=== PATIENT | female | born 1985 | race Hispanic/Latino ===

== ENCOUNTER 2025-01-31 11:41 | Outpatient (CLI) | payer BC, SELFPAY ==
--- NOTE | ~2025-01-31 | XR_ITS ---
EXAMINATION: XR wrist RT min 3V, 01/31/2025 11:55 ASSISTANT MEDIA PLANNER HISTORY: M25.531 - Pain in right wrist after injury 2 months ago COMPARISON: No comparisons available. Findings: No acute fracture or malalignment. No significant degenerative changes. Soft tissues unremarkable. Impression: No acute fracture or malalignment. Reviewed, dictated and finalized at location P. STANT MEDIA PLANNER Impression: No acute fracture or malalignment.
--- OUTSIDE RECORDS SUMMARY | 2025-01-31 13:14 | XMS_ITS | Data Portability ---
Author Organization [facility] , [facility] Address [address] [place] [address] Assessment No assessment recorded. Plan of Treatment Reminders Order Date Submit Date Provider Last Modified By Organization Details Last Modified Time Details Appointments None recorded. Lab test, urine 2022 023 [email or web address] 1 [facility], [address] [place], [address], 3 21:08:51 beta-HCG, quantitativ e, serum or plasma 2022 023 [facility], [address] [place] [address], [address], 3 10:50:34 Referral None recorded. Procedures None recorded. Surgeries None recorded. Imaging US, transvagina l 2022 023 JOANN [facility], [address] [place], [address], 3 23:37:00 MAMMO, screening, digital, bilateral [email or web address] [address] [place], [address], 3 11:17:22 US, obstetric, transvagina l 2022 023 JOANN Not available 3 23:38:59 Medication Orders labetalol 200 mg tablet 2022 023 [email or web address] [id number], [address], [place], [address], 10:38:46 Patient TargetsNo targets recorded. Patient InstructionsNo instructions recorded. Reason for Referral None Reported. Results Created Date Observation Date Name Description Value Unit Range Abnormal Flag Note LastModifiedBy Organization Detail LastModifiedTime 09/14/1909/13/2022 CBC (INCL UDES DIFF/ PLT) white blood cell count 9.2 thous and/u L 3.8-10 .8 normal Not Available [place] [address], [address], 09/13/2022 14:53:16 09/14/1909/13/2022 CBC (INCL UDES DIFF/ PLT) red blood cell count 4.44 toña on/uL 3.80-5 .10 normal Not Available [address], [address], 09/13/2022 14:53:16 09/14/1909/13/2022 CBC (INCL UDES DIFF/ PLT) hemoglobin 13.1 g/dL 11.7-1 5.5 normal Not Available [address], [address], 09/13/2022 14:53:16 09/14/1909/13/2022 CBC (INCL UDES DIFF/ PLT) hematocrit 40.9 % 35.0-4 5.0 normal Not Available [place] [address], [address], 09/13/2022 14:53:16 09/14/1909/13/2022 CBC (INCL UDES DIFF/ PLT) MCV 92.1 fL 80.0-1 00.0 normal Not Available [place] [address], [address], 09/13/2022 14:53:16 09/14/19 23 09/13/2022 CBC (INCL UDES DIFF/ PLT) MCH 29.5 pg 27.0-3 3.0 normal Not Available [address], [address], 09/13/2022 14:53:16 09/14/19 23 09/13/2022 CBC (INCL UDES DIFF/ PLT) MCHC 32.0 g/dL 32.0-3 6.0 normal Not Available [address], [address], 09/13/2022 14:53:16 09/14/1909/13/2022 CBC (INCL UDES DIFF/ PLT) RDW 14.3 % 11.0-1 5.0 normal Not Available [address], [address], 09/13/2022 14:53:16 09/14/1909/13/2022 CBC (INCL UDES DIFF/ PLT) platelet count 338 thous and/u L 140-40 0 normal Not Available [address], [address], 09/13/2022 14:53:16 09/14/19 23 09/13/2022 CBC (INCL UDES DIFF/ PLT) MPV 9.8 fL 7.5-12 .5 normal Not Available [address], [address], 09/13/2022 14:53:16 09/14/1909/13/2022 CBC (INCL UDES DIFF/ PLT) absolute neutrophils 5824 cells /uL 1500-7 800 normal Not Available [address], [address], 09/13/2022 14:53:16 09/14/19 23 09/13/2022 CBC (INCL UDES DIFF/ PLT) absolute lymphocytes 2668 cells /uL 850-39 00 normal Not Available [facility] [address], [place], [address], 09/13/2022 14:53:16 09/14/19 23 09/13/2022 CBC (INCL UDES DIFF/ PLT) absolute monocytes 515 cells /uL 200-95 0 normal Not Available [address], [address], 09/13/2022 14:53:16 09/14/19 23 09/13/2022 CBC (INCL UDES DIFF/ PLT) absolute eosinophils 120 cells /uL 15-500 normal Not Available [address], [address], 09/13/2022 14:53:16 09/14/19 23 09/13/2022 CBC (INCL UDES DIFF/ PLT) absolute basophils 74 cells /uL 0-200 normal Not Available [address], [address], 09/13/2022 14:53:16 09/14/19 23 09/13/2022 CBC (INCL UDES DIFF/ PLT) neutrophils 63.3 % normal Not Available [address], [address], 09/13/2022 14:53:16 09/14/19 23 09/13/2022 CBC (INCL UDES DIFF/ PLT) lymphocytes 29.0 % normal Not Available [facility] [address], [address], 09/13/2022 14:53:16 09/14/19 23 09/13/2022 CBC (INCL UDES DIFF/ PLT) monocytes 5.6 % normal Not Available [address], [address], 09/13/2022 14:53:16 09/14/19 23 09/13/2022 CBC (INCL UDES DIFF/ PLT) eosinophils 1.3 % normal Not Available [facility] [address] [place], [address], 09/13/2022 14:53:16 09/14/19 23 09/13/2022 CBC (INCL UDES DIFF/ PLT) basophils 0.8 % normal Not Available [facility] [address] [place], [address], 09/13/2022 14:53:16 09/14/19 23 09/13/2022 ABO GROUP AND RH TYPE ABO group O Not Available [facility] [address] [place], [address], 09/13/2022 14:53:16 09/14/1909/13/2022 ABO GROUP AND RH TYPE Rh type RH(D) POSITI VE For addit ional infor ruthy lockwood e refer to http: //maria parham healthken diana.Que stDia gnost ics.c om/fa q/FAQ 111 (This link is being provi ded for infor monty nal/ educa anali l purpo ses only. ) NO COLLE CTION DATE RECEI LEE. WE HAVE USED THE DATE THE SPECI MEN WAS RECEI LEE BY THIS LABOR ATORY THE COLLE CTION DATE. IF THIS IS INCOR RECT, PLEAS E CONTA CT CLIEN T SERVI MUNA. PHONE NUMBE R: [phone] Not Available [address] [address] [place], [address], 09/13/2022 14:53:16 09/12/1909/12/2022 HCG, TOTAL , QUANT HCG, total, [place] [address] mIU/m L <5 high Refer ence Range s are for femal es aged 18 years - Adult Nonpr egnan t or preme nopau tobias <5 Postm enopa usal <10 Value s from diffe rent assay metho ds may vary. The use of this assay to monit or or to diagn ose patie nts with cance r or any other condi tion unrel ated to pregn rita has not been valid ated by the manuf actur er of this assay . Not Available [address], [address], 09/12/2022 11:45:23 09/12/19 23 09/12/2022 CBC (INCL UDES DIFF/ PLT) WBC 9.3 thous and/u L 4.0 - 9.8 normal Not Available [address], [address], 09/12/2022 11:45:41 09/12/19 23 09/12/2022 CBC (INCL UDES DIFF/ PLT) RBC 4.5 toña on/uL 3.9 - 4.9 normal Not Available [address], [address], 09/12/2022 11:45:41 09/12/19 23 09/12/2022 CBC (INCL UDES DIFF/ PLT) hemoglobin 13.0 g/dL 11.8 - 14.8 normal Not Available [address], [address], 09/12/2022 11:45:41 09/12/1909/12/2022 CBC (INCL UDES DIFF/ PLT) hematocrit 39.3 % 35.5 - 44.0 normal Not Available [address], [address], 09/12/2022 11:45:41 09/12/1909/12/2022 CBC (INCL UDES DIFF/ PLT) MCV 88.3 fL 82.0 - 99.0 normal Not Available [address], [address], 09/12/2022 11:45:41 09/12/1909/12/2022 CBC (INCL UDES DIFF/ PLT) MCH 29.2 pg 27.2 - 32.6 normal Not Available [address], [address], 09/12/2022 11:45:41 07/12/09/12/2022 CBC (INCL UDES DIFF/ PLT) MCHC 33.1 g/dL 31.5 - 35.5 normal Not Available [address], [address], 09/12/2022 11:45:41 09/12/1909/12/2022 CBC (INCL UDES DIFF/ PLT) RDW-CV 14.2 % 11.5 - 14.5 normal Not Available [address], [address], 09/12/2022 11:45:41 09/12/19 23 09/12/2022 CBC (INCL UDES DIFF/ PLT) platelet 352 thous and/u L 140 - 350 high Not Available [address], [address], 09/12/2022 11:45:41 09/12/1909/12/2022 CBC (INCL UDES DIFF/ PLT) MPV 10.4 fL 9.3 - 12.4 normal Not Available [address], [address], 09/12/2022 11:45:41 09/12/19 23 09/12/2022 CBC (INCL UDES DIFF/ PLT) absolute neutrophil 5.91 thous and/u L 1.90 - 7.00 normal Not Available [address], [address], 09/12/2022 11:45:41 09/12/1909/12/2022 CBC (INCL UDES DIFF/ PLT) absolute lymphocyte 2.65 thous and/u L 0.70 - 4.50 normal Not Available [address], [address], 09/12/2022 11:45:41 09/12/19 23 09/12/2022 CBC (INCL UDES DIFF/ PLT) absolute monocyte 0.48 thous and/u L 0.10 - 1.30 normal Not Available [address], [address], 09/12/2022 11:45:41 09/12/19 23 09/12/2022 CBC (INCL UDES DIFF/ PLT) absolute eosinophil 0.14 thous and/u L <0.70 normal Not Available [address], [address], 09/12/2022 11:45:41 09/12/19 23 09/12/2022 CBC (INCL UDES DIFF/ PLT) absolute basophil 0.06 thous and/u L <0.20 normal Not Available [address], [address], 09/12/2022 11:45:41 09/12/19 23 09/12/2022 CBC (INCL UDES DIFF/ PLT) absolute immature granulocyte 0.04 thous and/u L <0.03 high Not Available [address], [address], 09/12/2022 11:45:41 09/12/1909/11/2022 pregn rita test, urine HCG positi ve Not Available [facility] [address] [place], [address], 09/11/2022 10:48:33 09/14/1909/14/2022 HCG, TOTAL , QUANT HCG, total, quant 01684 mIU/m L <5 high Refer ence Range s are for femal es aged 18 years - Adult Nonpr egnan t or preme nopau tobisa <5 Postm enopa usal <10 Value s from diffe rent assay metho ds may vary. The use of this assay to monit or or to diagn ose patie nts with cance r or any other condi tion unrel ated to pregn rita has not been valid ated by the manuf actur er of this assay . Not Available [address], [address], 09/14/2022 10:24:23 09/27/1909/27/2022 HCG, TOTAL , QUANT HCG, total, quant 752 mIU/m L <5 high Refer ence Range s are for femal es aged 18 years - Adult Nonpr egnan t or preme nopau tobias <5 Postm enopa usal <10 Value s from diffe rent assay metho ds may vary. The use of this assay to monit or or to diagn ose patie nts with cance r or any other condi tion unrel ated to pregn rita has not been valid ated by the manuf actur er of this assay . Not Available [facility] [address] [place], [address], 09/27/2022 10:50:34 09/27/1909/26/2022 pregn rita test, urine HCG positi ve Not Available [facility] [address] [place], [address], 09/26/2022 16:15:12 11/15/19 23 11/15/2022 HCG, TOTAL , QN HCG, total, qn <5 mIU/m L normal Refer ence Range Nonpr egnan t or preme nopau tobias <5 Postm enopa usal <10 Value s from diffe rent assay metho ds may vary. The use of this assay to monit or or to diagn ose patie nts with cance r or any condi tion unrel ated to pregn rita has not been clear ed or appro lee by the FDA or the [facility] act[facility] er of the assay . Not Available [facility] [address] [place], [address], 11/15/2022 07:19:38 09/15/19 23 09/11/2022 US, trans vagin al No observ ation record ed. [email or web address] Kati [address] [place] [address] [address], [place], [address], 09/14/2022 19:22:31 09/23/19 23 09/18/2022 US, obste tric, trans vagin al No observ ation record ed. [email or web address] Kati [address], [place], [address], 09/23/2022 10:08:00 10/03/19 23 10/02/2022 US, trans perriin al No observ ation record ed. douglas Parikh [address], [place], [address], 10/03/2022 12:14:14 Result Notes None recorded. Problems Name Problem SNOMED Code Status Onset Date Resolution Date Notes Provider Name and Address Organization Details Recorded Time Breast lump 76981176 Completed 201704/30/2017 Breast mass; Progress : Stable Added By: Pretty Mcmillan Add to Current Problems : YES ProblemS tatus: Current Unspecif ied lump in breast; Progress : Stable Added By: Gabo Tate Add to Current Problems : NO ProblemS tatus: Resolve Breast mass; Location : None Progress : Stable Added By: Gabo Tate Add to Current Problems : YES ProblemS tatus: Resolve Not Available [facility] 20:02:50 Problem Notes None recorded. Procedures Surgical History Date Name Laterality Status Provider Name and Address Organization Details Recorded Time 10/12/19 hysteroscopy completed Braulio Rosenthal MD [address] [place] [address], [phone], [facility] [employer] [facility] 10/23/2022 11:32:50 10/10/19 23 Most Recent Mammogram completed Braulio Rosenthal MD [address] [place] [address], [phone], [facility] IV 10/23/2022 11:37:14 07/18/19 22 Date of Last Pap Smear completed Sherley Roberson [place] - [facility] 10/20/2022 18:15:47 03/23/19 22 Nexplanon Removal completed Sendy Garcias CNM [address] [place] [address], [phone], [employer] - [facility] IV 04/01/2021 17:37:54 laparoscopy completed Lou Hay [employer] IV 03/23/2021 11:48:40 lumpectomy of right breast completed [facility] IV 03/23/2021 11:48:59 biopsy of breast completed [facility] 03/23/2021 11:49:21 Imaging Results None recorded. Procedure Notes None recorded. Medical Equipment None Reported. Allergies Allergen ID Allergen Name Allergen Category Reaction Reaction Severity Criticality Documentation Date Start Date Code Code System Note Provider Name and Address Organization Details Recorded Time 533650 peanut oil food,medi cation Not available Not available Not available 12/22/20202017 21255 RxNorm Sever ity: Moder ate; Not Available [facility] 1 01:19:26 584105 peanut allergeni c extract food,medi cation Not available Not available Not available 07/17/2021 81877 8 RxNorm Salma Josiah [facility], [place] [employer] 2 12:10:36 Medications Name Sig Start Date Stop Date Status Note LastModified by Organization Details LastModified Time cyclobenz aprine 10 mg tablet TAKE 1 TABLET BY MOUTH EVERY 8 HOURS NEEDED FOR 5 DAYS 07/17 completed Not Available Not Available Not Available doxycycli ne hyclate 100 mg capsule 10/23 completed Not Available Not Available Not Available labetalol 200 mg tablet Take 1 tablet twice a day by oral route as directed . 10/23 completed Not Available Not Available Not Available ibuprofen 800 mg tablet TAKE 1 TABLET BY MOUTH EVERY 6 HOURS NEEDED FOR 5 DAYS 10/23 completed Not Available Not Available Not Available benzonata te 200 mg capsule TAKE 1 CAPSULE BY MOUTH THREE TIMES A DAY 01/08 completed Not Available Not Available Not Available doxycycli ne hyclate 50 mg capsule TAKE 1 CAPSULE BY MOUTH EVERY DAY 01/08 completed Not Available Not Available Not Available oxycodone -acetamin ophen 5 mg-325 mg tablet TAKE 1 TABLET BY MOUTH EVERY 4 HOURS NEEDED FOR PAIN FOR UP TO 7 DAYS 10/23 completed Not Available Not Available Not Available meclizine 25 mg tablet TAKE 1 TABLET 3 TIMES A DAY BY ORAL ROUTE NEEDED. 10/23 completed Not Available Not Available Not Available misoprost ol 200 mcg tablet INSERT 4 TABS IN THE VAGINA FOR 15 MINUTES IN SUPINE POSITION TONIGHT, REPEAT TOMORROW 09/26 completed Not Available Not Available Not Available diclofena c sodium 50 mg tablet,de layed release TAKE 1 TABLET BY MOUTH EVERY 8 HOURS NEEDED FOR PAIN OR STIFFNES S 09/11 completed Not Available Not Available Not Available levofloxa kiara 500 mg tablet TAKE 1 TABLET BY MOUTH EVERY DAY FOR 10 DAYS 09/11 completed Not Available Not Available Not Available labetalol 100 mg tablet TAKE 1 TABLET BY MOUTH TWICE A DAY 10/02 completed Not Available Not Available Not Available drospiren one 3 mg-ethiny l estradiol 0.03 mg tablet TAKE 1 TABLET BY MOUTH EVERY DAY 2023 active Not Available Not Available Not Avai lable doxycycli ne hyclate 100 mg tablet TAKE 1 TABLET BY MOUTH TWICE A DAY FOR 7 DAYS 09/26 completed Not Available Not Available Not Available naproxen 500 mg tablet TAKE 1 TABLET BY MOUTH TWICE A DAY NEEDED 01/08 completed Not Available Not Available Not Available NuvaRing 0.12 mg-0.015 mg/24 hr vaginal Insert 1 vaginal ring in vagina for 21 days then remove the ring for 1 week. 03/10 completed NuvaRing 0.015mg/ 0.12mg Vaginal Ring RxNorm: [id number] Allow Substitu tion: True Refill Denied: No Edited by: Regine Solorio ) on 03/10/19 Stopped by: Regine Solorio ) on 03/10/19 Not Available Not Available Not Available cyclobenz aprine 5 mg tablet TAKE 1 TABLET 3 TIMES A DAY BY ORAL ROUTE. 01/08 completed Not Available Not Available Not Available metronida zole 1 % topical gel 03/23 completed Not Available Not Available Not Available Lo Loestrin Fe 1 mg-10 mcg (24)/10 mcg (2) tablet TAKE 1 TABLET BY MOUTH EVERY DAY 09/11 completed Not Available Not Available Not Available Nexplanon 68 mg subdermal implant 07/17 completed etonoges treL 68 mg Subderma l Implant RxNorm: [id number] Refill Denied: No Refill DateOccu rred: 04/27/19 Edited by: Regine Solorio ) on 02/25/20 21 Stopped by: curtis (Regine Rao ) on Not Available Not Available Not Available 28 mg iron-800 mcg tablet TAKE 1 TABLET BY MOUTH EVERY DAY DIRECTED 01/08 completed Not Available Not Available Not Available Soolantra 1 % topical cream 03/23 completed Not Available Not Available Not Available ID NOW COVID-19 Test Kit TEST DIRECTED 07/17 completed Not Available Not Available Not Available Vitals Date Recorded Body height Body mass index (BMI) Body weight Body temperature Systolic And Diastolic Provider Name and Address Organization Details Last Updated DateTime 09/18/2022 157.48 cm 32 kg/m2 68483.9 5 g 97.8 [degF] 132/90 mm[Hg] [facility] 3 16:36:18 Date Recorded Body height Body mass index (BMI) Body weight Systolic And Diastolic Provider Name and Address Organization Details Last Updated DateTime 09/26/2022 157.48 cm 31.8 kg/m2 28101.64 g 142/90 mm[Hg] Neela Julian [facility] IV 09/26/2022 16:15:44 Date Recorded Body height Systolic And Diastolic Provider Name and Address Organization Details Last Updated DateTime 10/02/2022 157.48 cm 136/84 mm[Hg] [facility] 10/02/2022 12:15:29 Date Recorded Body height Body mass index (BMI) Body weight Body temperature Systolic And Diastolic Provider Name and Address Organization Details Last Updated DateTime 10/09/2022 157.48 cm 30.9 kg/m2 05137.1 1 g 97.3 [degF] 120/80 mm[Hg] Madeleine Castillo [facility] IV 3 11:35:03 Date Recorded Body height Body mass index (BMI) Body weight Body temperature Systolic And Diastolic Provider Name and Address Organization Details Last Updated DateTime 10/23/2022 157.48 cm 31.5 kg/m2 91820.3 2 g 97.6 [degF] 132/86 mm[Hg] Felisa Lunsford [facility] IV 3 10:38:17 Social History Question Answer Notes LastModified by Organizat ion Details LastModified Time Tobacco Smoking Status Never Smoker Salma Rahman null, [facility] 07/17/2021 12:10:53 If You Are , What Was Your Level Of Alcohol Consumption Prior To ? Occasional Information not available 09/11/2022 Are You Blind Or Do You Have Difficulty Seeing? No Information not available 09/11/2022 Are You Deaf Or Do You Have Serious Difficulty Hearing? No Information not available 09/11/2022 What Type Of Diet Are You Following? REGULAR Information not available 07/17/2021 How Many Children Do You Have? 4 Information not available 03/23/2021 What Is Your Relationship Status? Information not available 03/23/2021 Are You Sexually Active? Yes Information not available 03/23/2021 Sex: Unknown Functional Status Question Answer Note LastModified by Organizat ion Details LastModified Time How many times per week do you consume alcohol? 1-2 times per week Information not available 09/11/2022 Do you use any illicit or recreational drugs? No Information not available 09/11/2022 What is your level of alcohol consumption? Occasional Information not available 07/17/2021 Do you or have you ever used e-cigarettes or vape? Never used electronic cigarettes Information not available 07/17/2021 What is your exercise level? Occasional Information not available 07/17/2021 Mental Status None recorded. Family History Relationship Description Onset Age of this Age Resolved Age Notes LastModified by Organization Details LastModified Time Father No current problems or disability Not available 12:10:39 Mother No current problems or disability [email or web address] Not available 11:46:52 Mother Hypertensive disorder Not available 07/01 12:10:39 Mother Hypercholest erolemia Not available 07/01 12:10:39 Maternal Grandfather No current problems or disability Not available 12:10:39 Medical History Condition Response Herpes (HSV) Y Gynecological History Statement/Question Response Flow Moderate Date of last HPV 07/17/2021 Frequency of Cycle (Q days) 28 Date of LMP 07/17/2022 Date of Last Pap Smear 07/17/2021 Duration of Flow (days) 5 Most Recent Mammogram 10/09/2022 Current Control Method None Age at Menarche 11 Obstetrics History GPAL:G 4 P 4 0 0 4 Type Value Full Term 4 Living 4 Total 4 Past Encounters Encounter ID Performer Location Encounter Start Date Encounter Closed Date Diagnosis/Indication Diagnosis SNOMED-CT Code Diagnosis ICD10 Code Diagnosis IMO Codes Diagnosis Note [id number] Sendy Garcias CNM [facility] [address] [place] [address] 03/23/2021 16:02:42 03/23/2021 17:15:37 Contraception care 385522968 Z30.40 Removal of subcutaneous contraceptive 129206284 Z30.46 [id number] [facility] [address] [place] [address] 07/17/2021 11:54:59 07/17/2021 15:57:10 Gynecologic examination 42442637 Z01.419 Screening for malignant neoplasm of cervix 910950356 Z12.4 Surveillan ce of contraception 760193815 Z30.40 Contracept ion care education 609662318 Z30.09 Mass of right breast 326 5153000 2275551 N63.10 0.5x1.5cm, firm, nontender, palpable mass right breast at 6 o'clock 3cm from nipple. [id number] ZEINAB JANE-CLARITA [facility] h [address] [place] [address] 01/08/2022 13:58:47 01/08/2022 15:12:48 Irregular periods 56078746 N92.6 Family claudia nning education 271232722 Z30.02 Surveillan ce of contraception 932260119 Z30.40 [id number] DARELL EGAN [facility] h [address] [facility] [place] [address] 09/11/2022 11:44:20 09/11/2022 18:17:22 test positive 030691615 Z32.01 Missed period 24878417 N 92.5 Pt presents today for a confirmati on of visit. has not been previously confirmed at another healthcare facility. Patient states LMP 07/17/2022, cycles were same time every month lasting about 5 days. Patient states that she had a positive test at home at the end of August.TVUS today showed:GS, Yolk Sac embryo without cardiac activity seen.CRL- 3.5mm (per ACOG CRL less than 7mm without cardiac activity is suspicious for failed ) Consulted with Dr. Mcbride- Will trend Quants today and Friday-ord ers in.POC:--- S/S of SAB reviewed and when to seek care Menstrual period late 84 939911 N92.6 Uncertain viability of 997664391 O36.80X9 [id number] [place] [place] [address] [place] [address] 09/18/2022 15:42:57 09/19/2022 14:59:41 Uncertain viability of 795666789 O36.80X9 Ultrasound today reveals gestationa l sac and yolk sac without pole. Reviewed findings with patient. Discussed options including expectant management , medication , and surgery. Will wait at this time. Strict precaution s reviewed. Verbalizes understand ing. [id number] Braulio Arauz DO [facility] [address] [place] [address] 09/26/2022 15:48:37 09/26/2022 17:08:04 Missed miscarriage 28179335 O02.1 follow quants Screening for malignant neoplasm of breast 526339950 Z12.39 Essential hypertension 10112271 I10 [id number] [facility] [address] [place] [address] 10/02/2022 12:01:13 10/02/2022 14:28:34 Miscarriage 95490868 O03.9 Reviewed history and findings with Dr. Roberson and recommende d to go to ER for evaluation . Patient and verbalizes understand ing. [id number] Braulio Rosenthal MD [facility] [address] [place] [address] 10/09/2022 11:14:17 10/10/2022 09:50:21 Incomplete miscarriage 258833301 O03.4 d and c and hysteroasc opyus 09-26-22 shows tissue vascular in uterus and no bleeding after cytotec 10-02-22 [id number] Braulio Rosenthal MD [facility] h [address] [place] [address] 10/23/2022 10:28:48 10/25/2022 13:51:06 Postoperative visit 618651673 Z09 COUNSELING was provided today regarding the following topics: healthy eating habits. Patient education given on weight management . .Postperat iris Recommenda tions: Excercise- may resume all regular activity, including vaginal penetratio n and intercours e, aerobic excercise, bathing, and driving. and 85% strength and at 12 weeks will be 100% and absolutely no limitation s and until then ease into strenuous exerciseFO LLOW-UP: in one year or sooner if issues and discussed good bowel health and if postcoital bleding or pain to contact us for a visit NEED TO MAKE APPT FOR ANNUAL EXAM WITH PAP . Health Concerns Section Related Observation LastModified by Organization Detai ls LastModified Time None Recorded Concern Status LastModified by Organization Details LastModified Time None Recorded Advance Directives Directive None Recorded Payers Insurance Date Sequence Insurance Name Policy Number Policy Vasquez Covered Member ID Vasquez Member ID Guarantor Name 10/20/2022 1 [place] [id number] Jennifer Horner [id number] Jennifer Horner Notes Date Note Type Note Provider Name and Address Organization Details Recorded Time 09/18/2022 text/html ROS as noted in the HPI Followup for with inconclusive viability Reports some spotting on Friday. Sendy Garcias CNM [address] [facility], [place], [address], [facility] 09/20/2022 21:22:40 09/26/2022 text/html ROS as noted in the HPI Rodriguez 37 y/o here for follow up from ER visit on Friday09/20/2022 missed . LMP 07/17/2022, bleeding, passing clots, cramping went to ER still spotting today, test today in office faint postive. She was seen in office on 09/11/2022 for confirmation , U/S shown sac but no cardiac activity, repeat U/S in office on 09/18/2022 still shown no cardiac activity . Patient also c/o headache she had elevated blood pressure placed on Labetalol 100 mg BID. Braulio Arauz DO [facility] [facility], [place], [address], [facility] [employer] IV 09/26/2022 16:41:19 10/02/2022 text/html Pt is here to f/u miscarriage. REports was seen in ER at [place] on 09/20 for bleeding, cramping, and passing clots. Bleeding stoppeed on 09/[address] Arauz on 09/26. She was treated for elevated blood pressure with labetalol 100mg po bid at that time. This morning she began feeling very weak and dizzy. Her blood pressure was normal during that time (reports 130s/80s) however she felt so poorly that she fell. She complains of pain in her right hip and has bleeding on her knees. Ultrasound today reveals retained products. Sendy Garcias CNM [facility], [place], [address], [facility] [employer] IV 10/02/2022 13:38:21 10/09/2022 text/html Pt is here today to f/u from missed ab and she has been lkightheaded and dizzy and 8-2--23 had been to the er and bp was 70-90/50-60 and hgb 13 and quant 172 Braulio Rosenthal MD [facility], [place], [address], [employer] IV 10/09/2022 13:13:35 10/23/2022 text/html Post-OpReported by PatientHPIFor onset/timing, patient reportsdate of surgery: (10/11/2022). For quality, patient reportsprocedure: (pr hysteroscopy removal leiomyomatahysterosco py, dilatation and curettage, myosure scopeat [facility] w/ dr. rosenthal). For associated symptoms, patient reportsincision healing well,no fatigue,normal appetite,normal bowel function,no constipation,no nausea,no emesis,pain improving,no pain,no fever,no bleeding,no lower extremity edema/pain, andno dysuria/urinary symptoms. Braulio Rosenthal MD [address] [place], [address], [facility] 10/25/2022 15:19:21 OBGyn Episode Ob Episode Information Episode Created Date Number of Fetuses Patient Bloodtype Patient rh Status Prepregnancy Weight lbs Domestic Partner Domestic Partner Phone Father Name Bankruptcy Legal Assistant Status 09/12/19 1 CLOSED Fetus Data First Name Last Name Admitted to NICU Weight (g) Sex Living Outcome Pediatric Complications Fetus ID Race Codes Race Delivery Type 3259.96 [id number] F Full Term [id number] Chaitanya Calculation Initial Chaitanya Date Initial Exam Date Initial Exam Provider Initial Ultrasound Date Last Menstrual Period Date Ultra Sound Weeks Gestation 0 Eighteen To Twenty Week Chaitanya Update Ultra Sound Date Fundal Height At Umbil Quickening Date Ultra Sound Latest Weeks Gestation Final Chaitanya Confirmed By Final Chaitanya Confirmed Date Final Chaitanya Date Ultra Sound Latest Days Gestation 0 0 Menstrual History Last Menstrual Date Menses Monthly On Bcp Conception Prior Menses Frequency Hcg Plus Date Menarche Onset Age Delivery Information Delivery Date Delivery Type Labor Anesthesia Weeks Gestation Incision Type Labor Labor Length Hrs Delivered By Post Complications Tubal Sterilization Discharge Date Comments 0 Regional- idural Discharge Information Feeding Method Contraceptive Method Maternal HG B and HCT Levels Ob Episode Information Episode Created Date Number of Fetuses Patient Bloodtype Patient rh Status Prepregnancy Weight lbs Domestic Partner Domestic Partner Phone Father Name Bankruptcy Legal Assistant Status 09/12/19 1 CLOSED Fetus Data First Name Last Name Admitted to NICU Weight (g) Sex Living Outcome Pediatric Complications Fetus ID Race Codes Race Delivery Type 7923.07 [id number] F Full Term [id number] Chaitanya Calculation Initial Chaitanya Date Initial Exam Date Initial Exam Provider Initial Ultrasound Date Last Menstrual Period Date Ultra Sound Weeks Gestation 0 Eighteen To Twenty Week Chaitanya Update Ultra Sound Date Fundal Height At Umbil Quickening Date Ultra Sound Latest Weeks Gestation Final Chaitanya Confirmed By Final Chaitanya Confirmed Date Final Chaitanya Date Ultra Sound Latest Days Gestation 0 0 Menstrual History Last Menstrual Date Menses Monthly On Bcp Conception Prior Menses Frequency Hcg Plus Date Menarche Onset Age Delivery Information Delivery Date Delivery Type Labor Anesthesia Weeks Gestation Incision Type Labor Labor Length Hrs Delivered By Post Complications Tubal Sterilization Discharge Date Comments 6 [facility] Discharge Information Feeding Method Contraceptive Method Maternal HG B and HCT Levels Ob Episode Information Episode Created Date Number of Fetuses Patient Bloodtype Patient rh Status Prepregnancy Weight lbs Domestic Partner Domestic Partner Phone Father Name Bankruptcy Legal Assistant Status 09/12/19 23 1 CLOSED Fetus Data First Name Last Name Admitted to NICU Weight (g) Sex Living Outcome Pediatric Complications Fetus ID Race Codes Race Delivery Type 3685.43 5 F Full Term [id number] Chaitanya Calculation Initial Chaitanya Date Initial Exam Date Initial Exam Provider Initial Ultrasound Date Last Menstrual Period Date Ultra Sound Weeks Gestation 0 Eighteen To Twenty Week Chaitanya Update Ultra Sound Date Fundal Height At Umbil Quickening Date Ultra Sound Latest Weeks Gestation Final Chaitanya Confirmed By Final Chaitanya Confirmed Date Final Chaitanya Date Ultra Sound Latest Days Gestation 0 0 Menstrual History Last Menstrual Date Menses Monthly On Bcp Conception Prior Menses Frequency Hcg Plus Date Menarche Onset Age Delivery Information Delivery Date Delivery Type Labor Anesthesia Weeks Gestation Incision Type Labor Labor Length Hrs Delivered By Post Complications Tubal Sterilization Discharge Date Comments 4 [facility] Discharge Information Feeding Method Contraceptive Method Maternal HG B and HCT Levels Ob Episode Information Episode Created Date Number of Fetuses Patient Bloodtype Patient rh Status Prepregnancy Weight lbs Domestic Partner Domestic Partner Phone Father Name Bankruptcy Legal Assistant Status 09/12/19 23 1 CLOSED Fetus Data First Name Last Name Admitted to NICU Weight (g) Sex Living Outcome Pediatric Complications Fetus ID Race Codes Race Delivery Type 3231.84 3 M Full Term [id number] Chaitanya Calculation Initial Chaitanya Date Initial Exam Date Initial Exam Provider Initial Ultrasound Date Last Menstrual Period Date Ultra Sound Weeks Gestation 0 Eighteen To Twenty Week Chaitanya Update Ultra Sound Date Fundal Height At Umbil Quickening Date Ultra Sound Latest Weeks Gestation Final Chaitanya Confirmed By Final Chaitanya Confirmed Date Final Chaitanya Date Ultra Sound Latest Days Gestation 0 0 Menstrual History Last Menstrual Date Menses Monthly On Bcp Conception Prior Menses Frequency Hcg Plus Date Menarche Onset Age Delivery Information Delivery Date Delivery Type Labor Anesthesia Weeks Gestation Incision Type Labor Labor Length Hrs Delivered By Post Complications Tubal Sterilization Discharge Date Comments 2 [facility] Discharge Information Feeding Method Contraceptive Method Maternal HG B and HCT Levels
--- OUTSIDE RECORDS SUMMARY | 2025-01-31 13:14 | XMS_ITS | Clinical Summary ---
Author Organization [facility] Address [address] [place] [address] Care Team Providers Care Bump Grader Operator Name Role Phone Ibrahima Reich MD Primary Care Provider [phone] Allergies No known active allergies Social History Tobacco Use Types Packs/Day Years Used Date Smoking Tobacco: Never Assessed Comments Unknown Sex and Gender Information Value Date Recorded Sex Assigned at Not on file Legal Sex Female 10:35 PM CDT Gender Identity Not on file Sexual Orientation Not on file Last Filed Vital Signs Vital Sign Reading Time Taken Comments Blood Pressure - - Pulse - - Temperature - - Respiratory Rate - - Oxygen Saturation - - Inhaled Oxygen Concentration - - Weight 61.2 kg (135 lb) 05/27/2017 9:00 AM CDT Height 160 cm (5' 3) 05/27/2017 9:00 AM CDT Body Mass Index 23.91 05/27/2017 9:00 AM CDT Plan of Treatment Health Maintenance Due Date Last Done Comments Cervical Cancer Screening Pap Smear (Age 30 to 64) Every 3 Years 1983 Annual Physical 05/25/1986 Hepatitis C 05/25/2001 DTaP, Tdap and Td Vaccines (1 - Tdap) 05/25/2002 Hepatitis B Vaccines (1 of 3 - 19+ 3-dose series) 05/25/2002 HPV Vaccines (1 - 3-dose SCDM series) 05/25/2010 Cervical Cancer Screening Pap with HPV Testing (Age 30 to 64) Every 5 Years 05/25/2013 Cervical Cancer Screening with HPV 05/25/2013 Mammogram Screening 10/09/2024 10/09/2022, 12/26/2017, 05/27/2017, Additional history exists COVID-19 Vaccine ( season) 2024 12/06/2020, 11/15/2020 Influenza Adult (#1) 2024 02/05/2019, 01/27/2018, 01/27/2017 Hepatitis A Vaccines Aged Out No long er eligible based on patient's age to complete this topic Meningococcal B Vaccine Aged Out No l onger eligible based on patient's age to complete this topic Meningococcal Vaccine Aged Out No john jessica eligible based on patient's age to complete this topic Pneumococcal Vaccine: Pediatrics (0 to 5 Years) and At-Risk Patients (6 to 49 Years) Aged Out No longer eligible based on patient's age to complete this topic RSV Immunizations Under 20 Months Aged Out No longer eligible based on patient's age to complete this topic Procedures Procedure Name Priority Date/Time Associated Diagnosis Comments MG SCREENING W ZAINAB JORGE DIGI Routine 10/09/2022 1:54 PM CDT Encounter for screening mammogram for malignant neoplasm of breast from Last 3 Months or Most Recently Relevant to Health Maintenance Results * MG SCREENING W ZAINAB JORGE DIGI (10/09/2022 1:54 PM CDT) Anatomical Region Laterality Modality Breast Bilateral Mammography 10/09/2022 3:54 PM CDT Narrative 10/09/2022 3:55 PM CDT Examination: Screening bilateral mammogram Exam Date/Time: 10/09/2022 1:39 PM Clinical history: Prior benign right biopsy 2016. No current complaints. Comparison: 12/26/2017 Technique: Digital screening mammography of both breasts was performed. Breast tomosynthesis acquisitions were obtained and reviewed. This study was read with the assistance of a computer-aided detection system. Tissue density: The breast tissue is heterogeneously dense, which may obscure small masses. Findings: No suspicious masses, malignant appearing calcifications, skin thickening or other abnormalities are present. No significant change from the prior exam. IMPRESSION: No suspicious mammographic findings. Recommendation: 1. Routine Screening, Bilateral Assessment: ACR BI-RADS 2 - BENIGN FINDING(S) Ordered By: FLACO SHARPE Interpreted By: Truman Lindsay, 10/09/2022 3:54 PM Flaco Sharpe MD MAMMO Final Result from Last 3 Months or Most Recently Relevant to Health Maintenance Insurance [facility] Care Teams Bump Grader Operator Relationship Specialty Start Date End Date Ibrahima Reich MD PCP - General 06/19/15
--- OUTSIDE RECORDS SUMMARY | 2025-01-31 13:14 | XMS_ITS | Clinical Summary ---
Author Organization [facility] Address [address] [place] [address] Care Team Providers Care Carpenter/Labor Name Role Phone Ibrahima Reich MD Primary Care Provider [phone] Allergies Active Allergy Reactions Criticality Noted Date Comments Peanut Syncope High 05/24/2017 Medications No known medications Active Problems Problem Noted Date Diagnosed Date Lesion of ovary 08/19/2018 Overview (10/09/2022): Other ovarian cyst, left side; Progress: Stable Added By: Ellen Ingram Add to Current Problems: YES ProblemStatus: Current Pelvic and perineal pain 04/27/2018 Overview (10/09/2022): Pelvic and perineal pain; Progress: Stable Added By: Joel Ingram Add to Current Problems: YES ProblemStatus: Current Follicular cyst of ovary 05/28/2017 Overview (10/09/2022): Unspecified ovarian cysts; Progress: Stable Added By: Pretty Mcmillan Add to Current Problems: YES ProblemStatus: Current Ovarian cyst; Progress: Stable Added By: Pretty Mcmillan Add to Current Problems: YES ProblemStatus: Current Thoracic radiculopathy 05/28/2017 Overview (10/09/2022): Mid back pain; Location: None Progress: Stable Added By: Gabo Tate Add to Current Problems: YES ProblemStatus: Current Radiculopathy, thoracic region; Progress: Stable Added By: Gabo Tate Add to Current Problems: YES ProblemStatus: Current Breast lump 04/28/2017 Overview (10/09/2022): Breast mass; Progress: Stable Added By: Pretty Mcmillan Add to Current Problems: YES ProblemStatus: Current Unspecified lump in breast; Progress: Stable Added By: Gabo Tate Add to Current Problems: NO ProblemStatus: Resolve Breast mass; Location: None Progress: Stable Added By: Gabo Tate Add to Current Problems: YES ProblemStatus: Resolve Mass of skin 01/15/2011 Surgical History Surgery Date Site/Laterality Comments CYST REMOVAL Right right ovarian Social History Tobacco Use Types Packs/Day Years Used Date Smoking Tobacco: Never Smokeless Tobacco: Never Alcohol Use Standard Drinks/Week Comments No 0 (1 standard drink = 0.6 oz pur e alcohol) AUDIT-C Answer Date Recorded Q1: How often do you have a drink containing alc ohol? 2-4 times a month 10/11/2022 Q2: How many drinks containi ng alcohol do you have on a typical day when you are drinking? 1 or 2 10/11/2022 Q3: How often do you have si x or more drinks on one occasion? Never 10/11/2022 Personal Safety Answer Date Recorded Have you ever been in or are you currently in a harmful physical or emotional relationship or is someone making you feel afraid or unsafe? 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 User may not have seen previous data. Respiratory Rate 14 10/11/2022 9:55 AM CDT Oxygen Saturation 98% 10/11/2022 10: 25 AM CDT Inhaled Oxygen Concentration - - Weight 79 kg (174 lb 1 oz) 10/11/2022 6 :37 AM CDT Height 157.5 cm (5' 2) 10/11/2022 6:37 AM CDT Body Mass Index 31.84 10/11/2022 6:37 AM CDT Plan of Treatment Health Maintenance Due Date Last Done Comments Breast Cancer Screening-Mammogram 1983 Cervical Cancer Screening 1983 Depression Screening 1983 Hepatitis C Screening 1983 DTaP/Tdap/Td Vaccine (1 - Tdap) 05/25/1994 Varicella Vaccines (1 of 2 - 13+ 2-dose series) 05/25/1996 Regular Well Visit/Exam 18-64 05/25/2001 HPV Vaccines (1 - 3-dose SCD M series) 05/25/2010 Covid-19 Vaccine (3 - 2024-2 6 season) 2024 12/06/2020, 11/15/2020 Influenza Vaccine (#1) 2024 9, 01/27/2018, 01/27/2017 Hepatitis B Screening Completed 11/09/2019 Pneumococcal vaccine <65 Aged Out No longer eligible based on patient's age to complete this topic Insurance [employer] [place] [employer] [place] [employer] [facility] Care Teams Carpenter/Labor Relationship Specialty Start Date End Date Ibrahima Reich MD PCP - General 05/24/17
== END 2025-01-31 11:42 | disposition home or self-care (01) ==
PROVIDERS: PCP Internal Medicine; Visit Provider Plastic Surgery
DX: M25.531 Pain in right wrist (principal)
CPT/HCPCS: 73110